=== PATIENT | female | born 1995 | race Caucasian/White ===

== ENCOUNTER 2024-03-28 07:22 | Emergency (ER) | payer SELFPAY ==
[2024-03-28 08:02] VITALS: TEMP 98; BMI 27.4
[2024-03-28 09:11] LABS: URINE COLOR RED
[2024-03-28 09:12] LABS: URINE APPEARANCE TURBID; URINE GLUCOSE (UA) 100 (NEGATIVE)
[2024-03-28 09:13] LABS: URINE PROTEIN 4+ (NEGATIVE); URINE RBC 1106 /uL (0-23.9); URINE UROBILINOGEN 0.2 mg/dL (0.2-1.0); URINE WBC 5 /uL (0-25.8)
[2024-03-28 09:14] LABS: EPI CELLS 7 /uL (0-25.1); HYALINE CASTS 24 /uL (0-3.1); URINE BACTERIA 108 /uL (0-1359)
[2024-03-28 09:16] LABS: URINE BILIRUBIN NEGATIVE (NEGATIVE)
[2024-03-28 10:17] LABS: BASO % 0.1 % (0-2.0); EOS % 0.3 % (0-4.5); HEMATOCRIT 38.9 % (32.4-45.2); HEMOGLOBIN 12.9 GM/dL (10.7-15.3); LYMPH % 11.7 % (8-40); MCH 26.7 pg (25.7-33.7); MCHC 33.1 g/dl (32.0-36.0); MEAN CELL VOLUME 80.9 fl (80-96); MEAN PLT VOLUME 7.6 fl (7.5-11.1); NEUT % 84.9 % (42.8-82.8); PLATELET COUNT 275 10^3/uL (134-434); RBC 4.81 M/mm3 (3.60-5.2); RDW 15.3 % (11.6-15.6); WHITE BLOOD COUNT 7.6 K/mm3 (4.0-10.0)
[2024-03-28 10:35] LABS: POTASSIUM 4.3 mmol/L (3.5-5.1)
[2024-03-28 10:38] LABS: ALBUMIN 3.3 g/dl (3.4-5.0); CALCIUM 9.6 mg/dL (8.5-10.1)
[2024-03-28 10:41] LABS: CREATININE 0.5 mg/dL (0.55-1.3)
[2024-03-28 10:43] LABS: BILIRUBIN,TOTAL 0.4 mg/dL (0.2-1); TOT PROT 7.2 g/dl (6.4-8.2)
[2024-03-28 10:46] LABS: ACTIVATED PTT 36.9 SECONDS (25.2-36.5); INR 0.96 (0.83-1.09); PROTHROMBIN TIME (PATIENT) 11.1 SEC (9.7-13.0)
[2024-03-28 10:58] VITALS: BP 105/59; PULSE 80; RESP 18
== END 2024-03-28 12:35 | disposition home or self-care (01) ==
LOC: JER 07:22
DX: O44.02 Complete placenta previa NOS or without hemorrhage, second trimester (principal); Z3A.18 18 weeks gestation of pregnancy
CPT/HCPCS: 36415; 76817-TC; 80053; 81003; 84702; 85025; 85610; 85730; 86850; 86900; 86901; 87086; 99284-25